=== PATIENT | male | born 1935 ===

== ENCOUNTER 2018-07-08 05:55 | Day surgery (SDC) | payer OTHER ==
[~2018-07-08 05:55] MED LIST: AZOPT10 ML OP; COMBIGAN EYE DRO5 ML OP; FOLIC ACID1 MG PO; FORTAMET500 MG PO; GABAPENTIN800 MG PO; GLYCOTROL CAPS1 EACH PO; LANTUS PO; [UNRECOGNIZED DRUG - CODE] PO
== END 2018-07-08 15:35 | disposition home or self-care (01) ==
LOC: CIR.AMB 05:55
DX: K40.90 Unilateral inguinal hernia, without obstruction or gangrene, not specified as recurrent (principal)